=== PATIENT | male | born 1960 | race Caucasian/White ===

== ENCOUNTER 2020-08-18 16:02 | Emergency (ER) | payer OTHER, MEDICARE, SELFPAY ==
[2020-08-18] VITALS (19 sets, daily range): BP systolic 128–199; BP diastolic 78–125; PULSE 70–104; RESP 11–20; TEMP 36.7; O2SAT 95–99; BMI 39.5
--- NOTE | 2020-08-18 16:12 | XRR_ITS ---
PROCEDURE INFORMATION: Exam: XR Chest, 1 View Exam date and time: 08/18/2020 4:13 PM Age: 60 years old Clinical indication: Chest pain; Additional info: Cp TECHNIQUE: Imaging protocol: XR of the chest Views: 1 view. COMPARISON: No relevant prior studies available. FINDINGS: Lungs: Unremarkable. No consolidation. Pleural spaces: Unremarkable. No pleural effusion. No pneumothorax. Heart/Mediastinum: Unremarkable. No cardiomegaly. Bones/joints: Unremarkable. XR/XR chest 1V portable [id number] IMPRESSION: No acute findings.
--- NOTE | 2020-08-18 16:12 | ECG_ITS ---
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 Measurements Intervals [place] Rate: 93 P: 48 [place]: 178 QRS: 24 QRSD: 80 T: 33 QT: 337 QTc: 421 Interpretive Statements SINUS RHYTHM LOW QRS VOLTAGE IN PRECORDIAL LEADS [QRS DEFLECTION < 1.0 mV IN CHEST LEADS] SEPTAL MYOCARDIAL INFARCTION [40+ ms Q WAVE IN V1/V2], PROBABLY OLD No previous ECG available for comparison Electronically Signed On 08-18-2020 17:02:20 WOOL GROWER by Robert Osullivan M.D. [email or web address]/store/[id number]
[2020-08-18] MEDS: labetalol 5 mg/mL SDV 20mL 20 MG IVP ×2 (19:20→21:05)
[2020-08-18] MEDS: lidocaine 2% viscous 15 ML, aluminum-mag hydrox-simethicon 30 ML, sucralfate oral liq 1 GM PO (19:30)
[2020-08-18] MEDS: nitroglycerin 1 gm/inch oint Pkt 1 INCH TOPICAL (19:35)
[2020-08-18 20:00] LABS: Basophils % 0.3 %; Eosinophils % 0.1 %; Hematocrit 47.1 % (42.0-52.0); Lymphocytes # 2.8 10^3/uL (0.8-4.8); Lymphocytes % 23.3 %; Mean Corpuscular Hemoglobin 30.5 pg (28.0-34.0); Mean Corpuscular Volume 89.7 fL (80-94); Monocytes # 0.6 10^3/uL (0.2-0.9); Monocytes % 4.6 %; Neutrophils # 8.56 10^3/uL (1.8-7.7); Neutrophils % 71.3 %; Nucleated Red Blood Cells % 0 %; Platelet Count 210 10^3/cmm (130-400); Red Blood Count 5.25 10^6/uL (4.1-5.3); Red Cell Distribution Width 12.2 % (12.1-15.1)
--- NOTE | 2020-08-18 20:26 | PC.NURSE ---
pt reports no improvement or change in pain 5/10 in epigastric area. Describes feeling as a rolling, bubling pressure with no acid reflux. BP rising after meds adm. notified
[2020-08-18 20:29] LABS: Alanine Aminotransferase 14 U/L (0-41); Albumin Level 4.3 g/dL (3.5-5.2); Alkaline Phosphatase 105 IU/L (40-130); Anion Gap 18.2 (5-19); Aspartate Amino Transferase 17 U/L (0-40); Blood Urea Nitrogen 11 mg/dL (8-23); Calcium 9.5 mg/dL (8.5-10.5); Carbon Dioxide 22 mmol/L (22-29); Chloride 96 mmol/L (98-107); Globulin 2.8 g/dL (1.3-4.6); Glomerular Filtration Rate 98.6 mL/min (90-130); Glucose 259 mg/dL (65-115); Osmolality Calculated 282 mOsm/kg (285-295); Potassium 4.2 mmol/L (3.5-5.1); Sodium 132 mmol/L (136-145); Total Bilirubin 0.6 mg/dL (0.15-1.2); Total Protein 7.1 g/dL (6.6-8.7)
[2020-08-18 20:30] LABS: Troponin(5th) Baseline 11 ng/L (0-15)
[2020-08-18] MEDS: ondansetron 2 mg/ML SDV 2 mL 4 MG IVP (20:40)
[2020-08-18] MEDS: morphine 4 mg/mL SDV 1 mL IVP (20:48)
[2020-08-18] MEDS: amlodipine 10 mg Tablet PO (20:52)
--- NOTE | 2020-08-18 20:54 | W.ED.CHESTPA ---
HPI - Chest Pain General: Chief Complaint: Chest Pain Stated Complaint: cp/elevated BP Time Seen by Provider: 08/18/20 18:59 History of Present Illness: HPI narrative: 60-year-old gentleman with a history of diabetes and hypertension. No prior history of coronary disease. He notes that he has had a sick, indigestion type feeling with a rolling belly and chest most of the day today. He notes that kept getting worse. He checked his blood pressure and it was quite high at home up to 200 systolic. He decided he better come to the hospital. He notes that the nausea/discomfort in his chest and belly is improved since his arrival, but definitely still there. He also notes that he started chromium and saw palmetto this week, and was wondering if this may be the cause of his symptoms. MD complaint: chest pain and other Pertinent past history: other Onset (ago): hour(s) Timing of current episode: constant Prior episodes: No Onset: during rest Pain location: substernal and epigastric Pain radiation: none Severity: moderate Quality: aching, heaviness and burning Relieving factors: nothing Exacerbating factors: nothing Associated symptoms: Reports abdominal pain and nausea; Deny dyspnea, fever(s), palpitations or vomiting Treatment prior to arrival: none Review of Systems Const: Denies: fever(s) Eyes: Denies: change in vision ENMT: Denies: odynophagia, swelling of lips/tongue or sinus pain Card: Reports: chest pain; Denies: palpitations, irregular heart rhythm, edema or orthopnea Resp: Denies: dyspnea GI: Reports: abdominal pain and nausea; Denies: vomiting : Reports: difficulty urinating; Denies: hematuria Musc: Denies: neck pain or joint warmth Skin/Breast: Denies: rash, pruritus or erythema Neuro: Denies: headache(s), dizziness or vertigo Psych: Denies: anxiety PFSH ED PFSH: Social History (Updated 08/18/20 @ 16:11 by Itz Berrios RN) Smoking and tobacco status: never smoked Alcohol intake: never Substance/Drug Use: never Physical Exam Const: GENERAL APPEARANCE: well developed ORIENTATION/CONSCIOUSNESS: Yes oriented to person, Yes oriented to place and Yes oriented to time HENMT: COMMON NORMALS: normocephalic, external ears normal and Normal external nose present HEAD & SCALP: normocephalic FACE & SINUS: normal facial exam NOSE: Normal external nose present and No nasal discharge present EXTERNAL EAR: Yes external ears normal Eye: COMMON NORMALS: Equal, round and reactive pupils present, EOMs intact bilaterally and conjunctivae normal EYELID: eyelids normal CONJUNCTIVA: Yes conjunctivae normal PUPIL: Yes Equal, round and reactive pupils present Neck/C-Spine: COMMON NORMALS: full ROM GENERAL: No tracheal deviation Chest: COMMONS NORMALS: normal inspection of the chest CHEST: No tenderness Resp: COMMON NORMALS: clear to auscultation bilaterally EFFORT & INSPECTION: No tachypneic, No respiratory distress, No retractions, No uses accessory muscles and No tracheal deviation AUSCULTATION: clear to auscultation bilaterally, no rhonchi, no wheezes and lung sounds not diminished Cardio: COMMON NORMALS: regular rate and regular rhythm RATE: regular rate RHYTHM: regular rhythm HEART SOUNDS: no murmurs PERIPHERAL PULSES: radial pulses present GI: INSPECTION: No abdominal distension AUSCULTATION: No Hyperactive bowel sounds present and No Hypoactive bowel sounds present PALPATION: No Guarding due to palpation present (GI) and No Rigid due to palpation PERCUSSION: no dullness to percussion and no tympanic to percussion Neuro: SENSORIUM/ORIENTATION: Yes oriented to person, Yes oriented to place and Yes oriented to time Psych: COMMON NORMALS: mental status grossly normal Skin: COMMON NORMALS: no rashes or lesions noted GENERAL SKIN EXAM: no rashes or lesions noted Course Vital Signs: Vital signs: Vital Signs Temperature 98.1 F 08/18/20 16:06 Pulse Rate 71 08/18/20 22:10 Respiratory Rate 17 08/18/20 22:10 Blood Pressure 139/86 08/18/20 22:10 Pulse Oximetry 96 08/18/20 22:10 MDM - Chest Pain MDM Narrative: Medical decision making narrative: 60-year-old male with hypertension and epigastric/chest discomfort. He notes that it improves when he belches. His EKG x2 2 hours apart shows a normal sinus rhythm with a rate of 70 normal axis and no acute ST changes. His first troponin is negative, his second 1 did not rise. His white blood cell count is 12 without left shift. His belly is nontender. His other laboratory is benign, although his sugar is high. His chest x-ray is negative. GI cocktail did not seem to help his symptoms. His blood pressure is now much better controlled, 150/84. He will be given amlodipine for as needed control of his blood pressure should it remain high he will also be given Prevacid and Carafate for his epigastric discomfort. Close outpatient follow-up. He knows to return for worsening symptoms Lab Data: Labs: Lab Results 08/18/20 08/18/20 08/18/20 Range/Units 19:05 19:05 19:05 WBC Cancelled Corrected WBC Cancelled RBC Cancelled Hgb Cancelled Hct Cancelled MCV Cancelled MCH Cancelled MCHC Cancelled RDW Cancelled Plt Count Cancelled MPV Cancelled Gran % Cancelled Neut % (Auto) Cancelled Lymph % (Auto) Cancelled [place] % (Auto) Cancelled Eos % (Auto) Cancelled Baso % (Auto) Cancelled Neut # (Auto) Cancelled Lymph # (Auto) Cancelled [place] # (Auto) Cancelled Eos # (Auto) Cancelled Baso # (Auto) Cancelled Absolute Gran (aut o) Cancelled Nucleated RBC % (a uto) Cancelled Nucleated RBCs # Cancelled Sodium Cancelled Potassium Cancelled Chloride Cancelled Carbon Dioxide Cancelled Anion Gap Cancelled BUN Cancelled Creatinine Cancelled GFR Calculation Cancelled Glucose Cancelled Calculated Osmolal ity Cancelled Calcium Cancelled Total Bilirubin Cancelled AST Cancelled ALT Cancelled Alkaline Phosphata se Cancelled Troponin T Baselin e Cancelled Troponin T 120 Min [place] (0-15) ng/L Delta Troponin T (0-10) ABS# Total Protein Cancelled Albumin Cancelled Globulin Cancelled 08/18/20 08/18/20 08/18/20 Range/Units 19:45 19:45 19:45 WBC 12.0 H Corrected WBC RBC 5.25 Hgb 16.0 Hct 47.1 MCV 89.7 MCH 30.5 MCHC 34.0 RDW 12.2 Plt Count 210 MPV 10.0 Gran % Neut % (Auto) 71.3 Lymph % (Auto) 23.3 Karnes % (Auto) 4.6 Eos % (Auto) 0.1 Baso % (Auto) 0.3 Neut # (Auto) 8.56 H Lymph # (Auto) 2.8 [place] # (Auto) 0.6 Eos # (Auto) 0.0 Baso # (Auto) 0.0 Absolute Gran (aut o) Nucleated RBC % (a uto) 0 Nucleated RBCs # 0.0 Sodium 132 L Potassium 4.2 Chloride 96 L Carbon Dioxide 22 Anion Gap 18.2 BUN 11 Creatinine 0.8 GFR Calculation 98.6 Glucose 259 H Calculated Osmolal ity 282 L Calcium 9.5 Total Bilirubin 0.6 AST 17 ALT 14 Alkaline Phosphata se 105 Troponin T Baselin e 11 Troponin T 120 Min [place] (0-15) ng/L Delta Troponin T (0-10) ABS# Total Protein 7.1 Albumin 4.3 Globulin 2.8 08/18/20 Range/Units 21:52 WBC Corrected WBC RBC Hgb Hct MCV MCH MCHC RDW Plt Count MPV Gran % Neut % (Auto) Lymph % (Auto) [place] % (Auto) Eos % (Auto) Baso % (Auto) Neut # (Auto) Lymph # (Auto) [place] # (Auto) Eos # (Auto) Baso # (Auto) Absolute Gran (aut o) Nucleated RBC % (a uto) Nucleated RBCs # Sodium Potassium Chloride Carbon Dioxide Anion Gap BUN Creatinine GFR Calculation Glucose Calculated Osmolal ity Calcium Total Bilirubin AST ALT Alkaline Phosphata se Troponin T Baselin e Troponin T 120 Min [place] 8.83 (0-15) ng/L Delta Troponin T -2.17 L (0-10) ABS# Total Protein Albumin Globulin Discharge Plan Discharge Patient Disposition: Home Clinical Impression: Hypertensive urgency Chest pain Qualifiers: Chest pain type: unspecified Qualified Code(s): R07.9 - Chest pain, unspecified Condition: Stable Prescriptions: New amlodipine 10 mg tablet 10 mg PO DAILY Qty: 30 RF: 0 Prevacid 30 mg capsule,delayed release(DR/EC) 30 mg PO DAILY Qty: 30 RF: 0 Carafate 1 gram tablet 1 g PO Q6H 28 Days Qty: 112 RF: 0 Discharge Orders: Discharge ED (Routine); Ordered 08/18/20 Ordered By: Vincent Jain Discharge Diet: Diabetic Discharge Activity: Increase activity as tolerated Patient Instructions: Chest Pain (ED), Hypertension (ED) Activity Restrictions/Additional Instructions: Return for worsening chest pain, shortness of breath, fever, vomiting, other concerning symptoms. Check your blood pressure twice daily, and report numbers to your physician. If your blood pressure is staying greater than 150/90 you may take the medication prescribed to you tonight. Coding Level of Care Code ED Chemical Operations Specialist for Chg Fwd Exam Comprehensive
--- NOTE | 2020-08-18 22:12 | ECG_ITS ---
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 Measurements Intervals [place] Rate: 71 P: 51 [place]: 197 QRS: 35 QRSD: 84 T: 19 QT: 384 QTc: 419 Interpretive Statements SINUS RHYTHM LOW QRS VOLTAGE IN PRECORDIAL LEADS [QRS DEFLECTION < 1.0 mV IN CHEST LEADS] SEPTAL MYOCARDIAL INFARCTION , PROBABLY OLD [40+ ms Q WAVE IN V1/V2] Compared to ECG 08/18/2020 16:13:45 No significant changes Electronically Signed On 08-19-2020 17:16:08 MICROBIOLOGICAL ANALYST by Robert Osullivan M.D. [email or web address].[employer]/store/NU/[id number] f
[2020-08-18 22:15] LABS: Troponin 5 2HR 8.83 ng/L (0-15)
[2020-08-18 22:40] LABS: Troponin 5 2HR Delta -2.17 ABS# (0-10)
[2020-08-19 00:05] VITALS: BP 150/84; PULSE 70; RESP 12; O2SAT 97
== END 2020-08-18 23:45 | disposition home or self-care (01) ==
PROVIDERS: Emergency Medicine; Emergency Provider Emergency Medicine
DX: I16.0 Hypertensive urgency (principal); R07.9 Chest pain, unspecified
CPT/HCPCS: 12345; 71045; 80053; 84484; 85025; 93005; 99282; J2270; J2405; J3490

== ENCOUNTER 2020-12-04 21:17 | Emergency (ER) | payer OTHER, MEDICARE, SELFPAY ==
[2020-12-04 21:22] VITALS: BP 181/85; PULSE 117; RESP 16; TEMP 36.7; O2SAT 99; BMI 38.4
--- NOTE | 2020-12-04 22:29 | ECG_ITS ---
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 Measurements Intervals [place] Rate: 97 P: 43 NM: 192 QRS: 22 QRSD: 83 T: 29 QT: 334 QTc: 425 Interpretive Statements SINUS RHYTHM SEPTAL MYOCARDIAL INFARCTION , PROBABLY OLD [40+ ms Q WAVE IN V1/V2] Compared to ECG 08/18/2020 22:55:02 No significant changes Electronically Signed On 12-05-2020 10:16:27 CDT by Kaci West M.D. [email or web address].[employer]/store/NU/[id number]/[id number] f
--- NOTE | 2020-12-04 22:46 | ED_ITS ---
HPI - Back Pain/Injury General: Chief Complaint: Back Pain/Injury Stated Complaint: lower back pain, hip pain Time Seen by Provider: 12/04/20 22:21 Source: patient Mode of arrival: ambulatory Limitations: no limitations History of Present Illness: HPI Narrative: 60-year-old male with a history of chronic back pain. She has been having left lower back pain over the last week. [facility] but has not had any pain medicines. He states that the pain is worsened and is mainly in his left back and left hip. He states it radiates down to his buttocks. States has had sciatica in the past. He denies any difficulty walking. Denies any bowel or bladder incontinence. States the pain is improved with rest and worse with movement or bending. Denies any recent injuries. Associated symptoms: Deny abdominal pain, chills, dysuria, fever(s), nausea or vomiting Review of Systems Const: Denies: fever(s), chills, body aches or change in appetite Eyes: Denies: blurry vision or eye discomfort ENMT: Denies: throat pain or dental pain Card: Denies: chest pain Resp: Denies: dyspnea GI: Denies: abdominal pain, nausea, vomiting or diarrhea : Denies: dysuria Musc: Reports: back pain; Denies: neck pain Skin/Breast: Denies: rash Neuro: Denies: headache(s) Psych: Denies: depression Clint/Lymph: Denies: easy bruising All/Imm: Denies: urticaria PFSH ED PFSH: Family History Other CAD (coronary artery disease) Cancer Diabetes Hypertension Social History Smoking and tobacco status: never smoked Alcohol intake: never Physical Exam Const: COMMON NORMALS: no acute distress, patient oriented x3 and healthy appearing HENMT: COMMON NORMALS: normocephalic and atraumatic HEAD & SCALP: normocephalic and atraumatic Eye: COMMON NORMALS: Equal, round and reactive pupils present and EOMs intact bilaterally PUPIL: Yes Equal, round and reactive pupils present Neck/C-Spine: COMMON NORMALS: full ROM and supple Chest: COMMONS NORMALS: normal inspection of the chest and normal palpation of entire chest wall Resp: COMMON NORMALS: normal respiratory effort, No retractions, No use of accessory muscles and clear to auscultation bilaterally AUSCULTATION: clear to auscultation bilaterally Cardio: COMMON NORMALS: regular rate, regular rhythm and No murmurs present (Cardio) RATE: regular rate RHYTHM: regular rhythm GI: COMMON NORMALS: Normal to inspection, nondistended, normoactive bowel sounds present, Soft to palpation, non-tender and no masses PALPATION: Yes Soft to palpation Back/Pelvis: OTHER: No midline tenderness. Patient has tenderness over left lower back. No saddle anesthesia. Extremity: COMMON NORMALS: normal to inspection and full ROM Neuro: COMMON NORMALS: patient oriented x3, moves all extremities and no focal motor deficits Psych: COMMON NORMALS: mental status grossly normal, Normal thought process present and cooperative THOUGHT PROCESS: Normal thought process present Skin: COMMON NORMALS: no rashes or lesions noted and no wounds GENERAL SKIN EXAM: no rashes or lesions noted Course Vital Signs: Vital signs: Vital Signs Temperature 98.1 F 12/04/20 21:22 Pulse Rate 86 12/05/20 00:13 Respiratory Rate 20 H 12/05/20 00:13 Blood Pressure 176/88 12/05/20 00:13 Pulse Oximetry 97 12/05/20 00:13 MDM - Back Pain/Injury MDM Narrative: Medical decision making narrative: Patient presents here with back pain is chronic in nature. Likely has some sciatica as well and is continue steroids at home. He feels improved after the morphine. Has no signs of epidural abscess or cord compression. He is follow-up with a neurosurgeon at 17 December. He is return to ER if worsening. He understands agrees to plan. EKG Data^: EKG 1: Attestation: I personally reviewed and interpreted this EKG as follows: EKG interpretation date: 12/04/20 EKG interpretation time: 22:37 Interpretation: nsr hr [address] or t wave abnormalities qrs 83 qtc 389 Discharge Plan Discharge Patient Disposition: Home Clinical Impression: Low back pain Qualifiers: Chronicity: acute Back pain laterality: left Sciatica presence: with sciatica Sciatica laterality: sciatica of left side Qualified Code(s): M54.42 - Lumbago with sciatica, left side Condition: Stable Prescriptions: New hydrocodone-acetaminophen 5-325 mg tablet 1 tab PO Q6H PRN (Reason: pain) Qty: 14 RF: 0 No Action lisinopril 20 mg tablet 20 mg PO DAILY RF: 0 amlodipine 10 mg tablet 20 mg PO DAILY RF: 0 famotidine 10 mg tablet 10 mg PO DAILY RF: 0 tramadol 50 mg tablet 50 mg PO BID PRNRF: 0 Discharge Orders: Discharge ED (Routine); Ordered 12/04/20 Ordered By: Krysten Veras Discharge Diet: Advance as tolerated Discharge Activity: Resume usual activity Patient Instructions: Back Pain (ED), Opioid Safety Coding Level of Care Code ED Manager Mechanical Maintenance for Chg Fwd Exam Comprehensive
[2020-12-04 23:00] VITALS: BP 176/88; PULSE 119; RESP 22; O2SAT 97
[2020-12-04 23:06] VITALS: RESP 20; O2SAT 97
[2020-12-04] MEDS: morphine 4 mg/mL SDV 1 mL 8 MG IM (23:06)
[2020-12-04] MEDS: dexamethasone 10 mg/mL INJ IM (23:07)
[2020-12-05] MEDS: HYDROcodone-acetaminophen 7.5-325 mg Tablet 1 TAB PO (00:07)
[2020-12-05 00:13] VITALS: BP 176/88; PULSE 86; RESP 20; O2SAT 97
== END 2020-12-05 00:10 | disposition home or self-care (01) ==
PROVIDERS: Emergency Provider Emergency Medicine
DX: M54.42 Lumbago with sciatica, left side (principal)
CPT/HCPCS: 93005; 96372; 99283; J1100; J2270

== ENCOUNTER 2020-12-07 11:32 | Emergency (ER) | payer OTHER, MEDICARE, SELFPAY ==
[2020-12-07 11:34] VITALS: BP 159/52; PULSE 91; RESP 18; TEMP 36.7; O2SAT 92
--- NOTE | 2020-12-07 11:47 | ED_ITS ---
HPI - Back Pain/Injury General: Chief Complaint: Back Pain/Injury Stated Complaint: back pain Time Seen by Provider: 12/07/20 11:47 History of Present Illness: HPI Narrative: Patient comes in for aggravating back pain. Patient states pain is been going on for about 2 weeks. Patient has been seen in the ER about 3 days ago for similar discomfort and was treated with an injection. Patient reports that his pain was worse the next day and he tried the hydrocodone that was prescribed at the time with minimal to no relief. Patient followed up with his primary care provider at the [facility] and was prescribed some more hydrocodone. Patient reports that he gets no relief with the hydrocodone. Patient appears uncomfortable but moves all extremities well and does not appear ill or toxic. Patient does report that he has chronic back pain and is supposed to see a neurosurgeon/spinal specialist on December 17. Patient is just seeking relief until he can get into see his neurosurgeon. Patient denies any incontinence of urine or bladder MD elicited complaint: back pain Pertinent past history: prior back pain Timing: intermittent Severity: moderate Similar Symptoms Previously: Yes Quality: burning and spasming Location: lumbar spine Radiation: buttocks and left upper leg Exacerbating factors: none Relieving factors: none Associated symptoms: Reports no associated symptoms Review of Systems General: Reports: 10 or more systems reviewed and unremarkable except in HPI and below Musc: Reports: back pain PFS ED 2 PFSH: Family History Other CAD (coronary artery disease) Cancer Diabetes Hypertension Social History Smoking and tobacco status: never smoked Alcohol intake: never Physical Exam Const: COMMON NORMALS: no acute distress and patient oriented x3 GENERAL APPEARANCE: cooperative HENMT: COMMON NORMALS: normocephalic and Normal external nose present HEAD & SCALP: normal to inspection and normocephalic NOSE: Normal external nose present Eye: GENERAL EYE: appearance normal, both eyes and all related structures Neck/C-Spine: COMMON NORMALS: full ROM Chest: COMMONS NORMALS: normal inspection of the chest Resp: COMMON NORMALS: normal respiratory effort EFFORT & INSPECTION: Yes able to speak in complete sentences Cardio: COMMON NORMALS: regular rate and regular rhythm RATE: regular rate RHYTHM: regular rhythm GI: COMMON NORMALS: non-tender : COMMON NORMALS: Yes no CVA tenderness BLADDER/KIDNEY EXAM: Yes no CVA t enderness Back/Pelvis: COMMON NORMALS: no CVA tenderness, thoracic and lumbar spine normal to inspection and no thoracic nor lumbar tenderness PELVIS: Yes buttock abnormal (Tenderness to the left upper medial buttock) Buttock abnormal laterality: left SACROILIAC JOINTS: Yes SI joints normal Extremity: COMMON NORMALS: normal to inspection Neuro: COMMON NORMALS: patient oriented x3 and moves all extremities Psych: COMMON NORMALS: mental status grossly normal and cooperative Skin: COMMON NORMALS: no rashes or lesions noted GENERAL SKIN EXAM: no rashes or lesions noted Course Vital Signs: Vital signs: Vital Signs Temperature 98.0 F 12/07/20 11:34 Pulse Rate 91 12/07/20 11:34 Respiratory Rate 18 12/07/20 12:44 Blood Pressure 159/52 12/07/20 11:34 Pulse Oximetry 92 12/07/20 11:34 MDM - Back Pain/Injury MDM Narrative: Medical decision making narrative: Patient comes in for persistent low back pain. Patient denies any abnormalities with bowel or bladder. Abdomen soft nontender. No CVA tenderness. No midline cervical , thoracic, or lumbar tenderness. Deep palpation of the left upper medial buttock does elicit some increased pain and discomfort. Differential diagnosis includes intervertebral disc disease, sciatica, lumbar radiculopathy. Patient was medicated with fentanyl, Toradol, and orphenadrine with improvement of pain and discomfort. CT scan of the lumbar spine indicated some mild to moderate spinal stenosis at L4-L5, and a herniation of the disc at L5-S1. No significant central canal spinal stenosis is noted. We will continue patient on diclofenac for pain and inflammation, tizanidine for muscle relaxation, and tramadol for further pain relief. Patient was encouraged to drink plenty of water and follow-up with primary care for refills of medication. Patient reported understanding of care plan and need for follow-up or return to the ER. Discharge Plan Discharge Patient Disposition: Home Clinical Impression: Lumbar radiculopathy Condition: Stable Prescriptions: New diclofenac potassium 50 mg tablet 50 mg PO TID Qty: 15 RF: 0 tizanidine 4 mg tablet 4 mg PO Q8H PRN (Reason: muscle spasticity) Qty: 15 RF: 0 tramadol 50 mg tablet 50 mg PO Q8H PRN (Reason: pain) Qty: 15 RF: 0 No Action lisinopril 20 mg tablet 20 mg PO DAILY RF: 0 amlodipine 10 mg tablet 20 mg PO DAILY RF: 0 famotidine 10 mg tablet 10 mg PO DAILY RF: 0 tramadol 50 mg tablet 50 mg PO BID PRNRF: 0 hydrocodone-acetaminophen 5-325 mg tablet 1 tab PO Q6H PRN (Reason: pain) Qty: 14 RF: 0 Discharge Orders: Discharge ED (Routine); Ordered 12/07/20 Ordered By: Emmanuel Crisostomo Discharge Diet: Usual diet Discharge Activity: Increase activity as tolerated Patient Instructions: Back Pain (ED), Opioid Safety Activity Restrictions/Additional Instructions: Activity as tolerated. Gentle stretching and range of motion exercises. Use ice or heat to the area for further pain relief. Take medication as directed. Do not use ibuprofen with diclofenac. Follow-up with primary care for refills of medication as needed. Return to the emergency department as needed. Coding Level of Care Code ED Metal Rivet Machine Operator for Cali Church
--- NOTE | 2020-12-07 11:52 | CTR_ITS ---
PROCEDURE INFORMATION: Exam: CT Lumbar Spine Without Contrast Exam date and time: 12/07/2020 12:24 PM Age: 60 years old Clinical indication: Low back pain and lumbago with sciatica; Left; Additional info: Lumbar pain TECHNIQUE: Imaging protocol: Computed tomography images of the lumbar spine without contrast. Radiation optimization: All CT scans at this facility use at least one of these dose optimization techniques: automated exposure control; mA and/or kV adjustment per patient size (includes targeted exams where dose is matched to clinical indication); or iterative reconstruction. COMPARISON: No relevant prior studies available. RADIATION DOSE METRICS: Total DLP (mGy-cm): 2508.2 FINDINGS: Vertebrae: No acute fracture. Normal alignment. L1-L2: No significant disc protrusion. No severe spinal canal stenosis. No significant neural foraminal narrowing. L2-L3: There is mild diffuse disc bulging but no focal disc herniation. No severe spinal canal stenosis. No significant neural foraminal narrowing. L3-L4: There is mild diffuse disc bulging but no focal disc herniation. No severe spinal canal stenosis. No significant neural foraminal narrowing. L4-L5: There is diffuse bulging of the L4-L5 disc asymmetrically more prominently to the left side. There is facet joint hypertrophy. There is lwdy-ef-eqilelyc spinal stenosis related to the diffuse disc protrusion and bilateral facet hypertrophy. No severe spinal canal stenosis. No significant neural foraminal narrowing. L5-S1: There is chronic degenerative disc space narrowing and diffuse bulging. There is a focal herniation of the disc to the left side of the canal measuring about 6 mm in diameter. No severe spinal canal stenosis. No significant neural foraminal narrowing. Soft tissues: Unremarkable. CT/CT lumbar spine wo con* [id number] IMPRESSION: 1. Iatj-jm-jvzipcwj spinal stenosis at the L4-L5 level related to diffuse disc protrusion and bilateral facet hypertrophy. 2. Small herniation of the L5-S1 disc to the left lateral recess with mild left neural foraminal narrowing but no significant central canal stenosis. Radiation Dose CTDIVOL = (mGy): DLP = 2508.2 (mGy-cm)
[2020-12-07 12:44] VITALS: RESP 18
[2020-12-07] MEDS: fentaNYL 50 mcg/mL INJ 2mL IVP (12:44)
[2020-12-07] MEDS: orphenadrine 30 mg/mL Inj 2 mL 60 MG IVP (12:46)
[2020-12-07] MEDS: ketorolac 30 mg/mL INJ 15 MG IVP (12:46)
[2020-12-07 13:31] VITALS: BP 131/81; PULSE 88; RESP 18; O2SAT 96
== END 2020-12-07 13:33 | disposition home or self-care (01) ==
PROVIDERS: Emergency Provider Nurse Practitioner Family
DX: M54.16 Radiculopathy, lumbar region (principal)
CPT/HCPCS: 72131; 96374; 96375; 99283; J1885; J2360; J3010

== ENCOUNTER 2021-07-10 20:00 | Outpatient (CLI) | payer OTHER, SELFPAY | END 2021-07-10 20:01 | disposition home or self-care (01) | LOC: SLEEP 07-14 08:01 | PROVIDERS: Visit Provider Family Medicine | DX: G47.30 Sleep apnea, unspecified (principal) | CPT/HCPCS: 95811 ==

== ENCOUNTER 2022-10-28 06:52 | Outpatient (CLI) | payer OTHER, SELFPAY ==
--- NOTE | 2022-10-28 07:12 | US_ITS ---
WS: [id number] ABDOMINAL ULTRASOUND LIMITED REASON FOR EXAM: RUQ ABDOMINAL PAIN COMPARISON: None available. ORDER DATE: 10/28/2022 7:14 AM TECHNIQUE: Grayscale and Doppler ultrasound examination of the abdomen. FINDINGS: Pancreas: Unremarkable as visualized Abdominal aorta and IVC: Approximately both 20 mm in diameter, unremarkable Liver: Liver measures 18.6 cm in length. Decreased penetration with possible hepatomegaly Gallbladder: Gallbladder wall thickness measures 0.2 mm. No evidence of cholelithiasis common bile du ct 4 mm in diameter Right kidney: Right kidney measures 11.7 cm x 4.8 cm x 5.1 cm. Right kidney cortex measures 1.2 cm. S atisfactory duplex flow No evidence of ascites US/US abdomen limited [id number] IMPRESSION: Unremarkable right upper quadrant ultrasound except for hepatomegaly and somewh at coarse echotexture liver.
== END 2022-10-28 06:53 | disposition home or self-care (01) ==
LOC: RAD 06:54
PROVIDERS: PCP Family Medicine; Visit Provider Family Medicine
DX: R10.11 Right upper quadrant pain (principal); R16.0 Hepatomegaly, not elsewhere classified
CPT/HCPCS: 76705

== ENCOUNTER 2023-02-25 09:21 | Outpatient (RCR) | payer OTHER, SELFPAY | END 2023-03-18 23:59 | disposition home or self-care (01) | LOC: SPT 09:21 | PROVIDERS: PCP Family Medicine; Visit Provider Family Medicine | DX: M54.50 Low back pain, unspecified (principal) | CPT/HCPCS: 97110 ==

== ENCOUNTER 2023-03-19 06:00 | Outpatient (RCR) | payer OTHER, SELFPAY | END 2023-04-17 23:59 | disposition home or self-care (01) | LOC: SPT 06:00 | PROVIDERS: PCP Family Medicine; Visit Provider Family Medicine | DX: M54.50 Low back pain, unspecified (principal) | CPT/HCPCS: 97110 ==

== ENCOUNTER 2023-06-03 07:20 | Outpatient (CLI) | payer OTHER, SELFPAY ==
--- NOTE | 2023-06-03 07:30 | MR_ITS ---
WS: [id number] MRI LUMBAR SPINE NONCONTRAST HISTORY: BACK PAIN COMPARISON: CT 12/07/2020 TECHNIQUE: Sagittal and axial multisequence imaging is submitted. Normal posterior alignment. Reactive marrow edema in the adjacent L4 and L5 vertebral bodies. No acut e compression fractures. Disc spaces are all mildly desiccated. Conus terminates normally at L1-2 disc level. L1-L2: No stenosis. L2-L3: Ligamentum flavum and facet arthritis. Mild disc encroachment into the foramina. Mild foramina l narrowing. L3-L4: Diffuse annular disc bulging with moderate ligamentum flavum and facet arthritis. No focal dis c protrusions. Mild central, bilateral subarticular recess and RIGHT foraminal stenosis. Moderate LEF T foraminal stenosis. L4-L5: Marked annular disc bulging with a central disc protrusion extending into the subarticular rec esses. Marked ligamentum flavum and facet arthritis. Moderate central with more severe bilateral suba rticular recess and foraminal stenosis. Increasing fluid in the RIGHT facet joint. Posterior laminect kassy defect. L5-S1: Diffuse annular disc bulging. Shallow disc protrusion contacts but does not displace the LEFT S1 nerve root. Posterior laminectomy defect. No central stenosis. Moderate LEFT and mild RIGHT forami nal stenosis. Paravertebral soft tissues are negative. IMPRESSION: 1. L4-5: Diffuse disc bulge with a central disc protrusion. Moderate central with more severe bilater al subarticular recess stenosis and foraminal stenosis. Increasing fluid in the RIGHT facet joint. 2. L5-S1: Annular disc bulging with a shallow central disc protrusion contacting the LEFT S1 nerve ro ot. Moderate LEFT and mild RIGHT foraminal stenosis. 3. Prior posterior laminectomy defects at L4-5 and L5-S1. 4. L3-4: Mild central, bilateral subarticular recess and RIGHT foraminal stenosis. Moderate LEFT fora rommel stenosis.
== END 2023-06-03 07:21 | disposition home or self-care (01) ==
LOC: RAD 07:21
PROVIDERS: PCP Family Medicine; Visit Provider Family Medicine
DX: M51.36 Other intervertebral disc degeneration, lumbar region (principal); M48.061 Spinal stenosis, lumbar region without neurogenic claudication
CPT/HCPCS: 72148

== ENCOUNTER → 2023-07-01 08:31 | Outpatient (BNVA) | payer OTHER, SELFPAY | PROVIDERS: PCP Family Medicine; Visit Provider Anesthesiology Pain Medicine | DX: M51.16 Intervertebral disc disorders with radiculopathy, lumbar region; M47.816 Spondylosis without myelopathy or radiculopathy, lumbar region; M48.061 Spinal stenosis, lumbar region without neurogenic claudication | CPT/HCPCS: 99204 ==

== ENCOUNTER 2023-08-17 09:59 | Outpatient (RCR) | payer OTHER, SELFPAY | END 2023-08-18 23:59 | disposition home or self-care (01) | LOC: SPT 09:59 | PROVIDERS: PCP Family Medicine; Visit Provider Family Medicine | DX: R42 Dizziness and giddiness (principal) | CPT/HCPCS: 95992; 97161 ==

== ENCOUNTER 2023-08-19 06:00 | Outpatient (RCR) | payer OTHER, SELFPAY | END 2023-09-16 23:59 | disposition home or self-care (01) | LOC: SPT 06:00 | PROVIDERS: PCP Family Medicine; Visit Provider Family Medicine | DX: R42 Dizziness and giddiness (principal) | CPT/HCPCS: 95992 ==

== ENCOUNTER → 2024-03-02 09:19 | Outpatient (BNVA) | payer OTHER, SELFPAY | PROVIDERS: PCP Family Medicine; Referring Provider Family Medicine; Visit Provider Internal Medicine | DX: R55 Syncope and collapse (principal); I49.1 Atrial premature depolarization; I49.3 Ventricular premature depolarization | CPT/HCPCS: 93246 ==

== ENCOUNTER 2024-03-21 06:22 | Outpatient (CLI) | payer OTHER, SELFPAY ==
--- NOTE | 2024-03-21 06:40 | USCV_ITS ---
Skip Villanueva Age: 64 Gender: M : 1960 Exam Date: 03/21/2024 06:50 Ordering Phys: Becky Quevedo MD Technologist: Sagrario Sosa Exam Location: [facility] [place] Indication: FATIGUE AND MURMUR BP: / HR: 70 Rhythm: Sinus Technical Quality: Adequate MEASUREMENTS (Male / Female) Normal Values 2D ECHO LV Diastolic Diameter PLAX 4.6 cm 4.2 - 5.9 / 3.9 - 5.3 cm LV Systolic Diameter PLAX 2.5 cm IVS Diastolic Thickness 1.0 cm 0.6 - 1.0 / 0.6 - 0.9 cm IVS Systolic Thickness 1.8 cm LVPW Diastolic Thickness 1.1 cm 0.6 - 1.0 / 0.6 - 0.9 cm LVPW Systolic Thickness 1.4 cm LVOT Diameter 2.0 cm LV Ejection Fraction 2D Teich 77.6 % LV Ejection Fraction MOD 4C 57.5 % LV Ejection Fraction MOD 2C 61.8 % LV Ejection Fraction 2C AL 61.0 % LA Diameter 2.4 cm RA Systolic Volume 4C AL 20.8 ml RA Systolic Volume 4C MOD 20.4 ml LA Sys Volume AL 32.4 cm cubed LA Sys Volume Index AL 12.5 cm cubed/m squared Aorta at Sinotubular Diameter 2.3 cm IVC Diameter 1.3 cm M-MODE LA Ao Ratio MM 1.7 AV Cusp Separation MM 1.4 cm DOPPLER AV Peak Velocity 164.0 cm/s LVOT Peak Velocity 133.0 cm/s AV Area Cont Eq vti 2.8 cm squared AV Area Cont Eq pk 2.6 cm squared MV Area PHT 2.9 cm squared Mitral E to A Ratio 1.0 TV Peak Velocity 123.7 cm/s TR Peak Velocity 140.0 cm/s TR Peak Gradient 7.8 mmHg TR Mean Velocity 94.0 cm/s TR Mean Gradient 4.2 mmHg TR Velocity Time Integral 35.4 cm TV Peak E Velocity 67.0 cm/s Right Atrial Pressure 3.0 mmHg Pulmonary Artery Systolic Pressu 10.8 mmHg PV Peak Velocity 108.0 cm/s FINDINGS Left Ventricle Normal left ventricular size and systolic function, EF 62%.no regional wall motion abnormalities. Right Ventricle The right ventricle is normal in size and function. Right Atrium The right atrium is normal in size. Left Atrium Mildly increased left atrial size. Mitral Valve No gross abnormalities noted Aortic Valve Thickened aortic valve. Mild aortic valve regurgitation. Tricuspid Valve Trace tricuspid valve regurgitation. Pulmonic Valve No gross abnormalities noted Pericardium Normal pericardium without effusion. Aorta Normal ascending aorta dimension. IVC The inferior vena cava appears normal. CONCLUSIONS Normal left ventricular size and systolic function, EF 62%.no regional wall motion abnormalities. Mildly increased left atrial size. Thickened aortic valve. Mild aortic valve regurgitation. Trace tricuspid valve regurgitation. Estimated pulmonary artery peak systolic pressure within normal limits There is no pericardial effusion. There are no intracardiac masses. No similar previous studies are available for comparison Dr Kaci West MD [facility] (Electronically Signed) Final Date: 21 March 2024 23:30 S
--- NOTE | 2024-03-21 07:30 | USCV_ITS ---
Skip Villanueva Age: 64 Gender: M : 1960 Exam Date: 03/21/2024 07:35 Ordering Phys: Becky Quevedo MD Technologist: WILLEM [place] [facility] [place]: Dizziness and near syncope Risk Factors: Unknown Previous Vascular Surgery: None Right Brachial BP: / Left Brachial BP: / Right Left Velocity (cm/s) Spectral Plaque Velocity (cm/s) Spectral Plaque Syst/Diast Broadening Syst/Diast Broadening 127.00/22.40 Prox CCA 116.20/ 21.50 74.70/ 13.70 Mid CCA 144.60/ 45.20 79.10/ 13.70 Distal CCA 56.60 / 11.00 124.80/31.10 Prox ICA 68.90 / 16.30 100.20/25.80 Mid ICA 144.60/ 45.20 73.40/ 21.30 Distal ICA 113.40/ 31.50 92.10 ECA 84.60 1.00 ICA/CCA 1.00 Antegrade Vertebral Antegrade 36.20/ 10.90 cm/s 40.20/ 10.80 cm/s Tri Subclavian Tri 77.30 148.7 0 FINDINGS Moderate dense plaques of the right bifurcation and proximal ICA Minimal plaque to the left bifurcation and proximal ICA Moderate diffuse plaque in the mid and distal ICA on the left side Antegrade flow in the vertebral arteries bilaterally. Normal Doppler flow velocities in the external carotid and subclavian arteries bilaterally CONCLUSIONS Moderate dense plaques of the right bifurcation and proximal internal carotid artery with Doppler features suggesting less than 50% stenosis. Moderate diffuse plaque in the left mid and distal internal carotid artery with velocity elevation, may suggest greater than 50% stenosis . Consider CTA to better evaluate the distal internal carotid artery on the left side, if clinically indicated. No similar previous studies are available for comparison Dr Kaci West MD [facility] (Electronically Signed) Final Date: 23 March 2024 08:22 S
== END 2024-03-21 06:23 | disposition home or self-care (01) ==
PROVIDERS: PCP Family Medicine; Visit Provider Family Medicine
DX: I65.23 Occlusion and stenosis of bilateral carotid arteries (principal); I35.0 Nonrheumatic aortic (valve) stenosis
CPT/HCPCS: 93306; 93880

== ENCOUNTER 2024-03-24 11:58 | Emergency (ER) | payer OTHER, SELFPAY ==
[2024-03-24] VITALS (7 sets, daily range): BP systolic 118–166; BP diastolic 54–91; PULSE 71–83; RESP 12–20; TEMP 36.9; O2SAT 97–100; BMI 41.6
--- NOTE | 2024-03-24 12:00 | ECG_ITS ---
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 Measurements Intervals [place] Rate: 80 P: 57 MN: 184 QRS: 35 QRSD: 89 T: 20 QT: 359 QTc: 415 Interpretive Statements SINUS RHYTHM WITH SINUS ARRHYTHMIA LOW QRS VOLTAGE [QRS DEFLECTION < 0.5/1.0 mV IN LIMB/CHEST LEADS] Compared to ECG 12/04/2020 22:37:52 Low QRS voltage now present Myocardial infarct finding no longer present Electronically Signed On 03-24-2024 17:03:50 CDT by Kaci West M.D. [id number] f
--- NOTE | 2024-03-24 12:16 | XR_ITS ---
WS: [id number] Examination: XR chest 1V portable [id number] Reason for Exam: Chest pain Date: 03/24/2024 Comparison: 08/18/2020 Findings: The heart is not grossly enlarged on this AP portable film. The mediastinum not widened. There is no pulmonary edema. There is no pleural effusion. No dense consolidation is identified. XR/XR chest 1V portable [id number] Impression: No acute lung process is seen.
[2024-03-24 13:50] LABS: Basophils % 0.3 %; Eosinophils % 0.1 %; Lymphocytes # 4.6 10^3/uL (0.8-4.8); Lymphocytes % 32.9 %; Mean Corpuscular HGB Conc 32.2 g/dL (30-55); Mean Corpuscular Hemoglobin 30.7 pg (27-33); Mean Corpuscular Volume 95.3 fl (82-101); Monocytes # 0.7 10^3/uL (0.2-0.9); Monocytes % 5.1 %; Neutrophils # 8.61 10^3/uL (1.8-7.7); Neutrophils % 61.3 %; Nucleated Red Blood Cells % 0 %; Platelet Count 224 10^3/cmm (157-399); Red Cell Distribution Width 13.3 % (12.1-15.1); White Blood Count 14.02 10^3/uL (3.29-11.43)
[2024-03-24 14:11] LABS: Troponin(5th) Baseline 29 ng/L (0-15)
--- NOTE | 2024-03-24 14:17 | ECG_ITS ---
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 Measurements Intervals [place] Rate: 71 P: 56 VA: 203 QRS: 37 QRSD: 83 T: 7 QT: 373 QTc: 407 Interpretive Statements SINUS RHYTHM LOW QRS VOLTAGE [QRS DEFLECTION < 0.5/1.0 mV IN LIMB/CHEST LEADS] SEPTAL MYOCARDIAL INFARCTION , PROBABLY OLD [40+ ms Q WAVE IN V1/V2] Compared to ECG 03/24/2024 12:00:49 Myocardial infarct finding now present Sinus arrhythmia no longer present Electronically Signed On 03-24-2024 17:12:52 CDT by Kaci West M.D. [id number]
[2024-03-24 14:18] LABS: Alanine Aminotransferase 16 U/L (0-41); Albumin Level 4.3 g/dL (3.5-5.2); Alkaline Phosphatase 100 U/L (40-130); Anion Gap 18.3 (5-19); Aspartate Amino Transferase 17 U/L (0-40); Blood Urea Nitrogen 27 mg/dL (8-23); Calcium 8.9 mg/dL (8.5-10.5); Carbon Dioxide 20 mmol/L (22-29); Chloride 102 mmol/L (98-107); Creatinine Clr Calc Pharmacy 65.8563; Globulin 2.5 g/dL (1.3-4.6); Glomerular Filtration Rate 47.1 mL/min (90-130); Glucose 134 mg/dL (65-115); NT Pro B Type Natriuretic Pept 72 pg/mL (0-125); Osmolality Calculated 289 mOsm/kg (285-295); Potassium 4.3 mmol/L (3.5-5.1); Sodium 136 mmol/L (136-145); Total Bilirubin 0.4 mg/dL (0.15-1.2); Total Protein 6.8 g/dL (6.6-8.7)
--- NOTE | 2024-03-24 15:12 | ED_ITS ---
HPI - Chest Pain 2 General: Chief Complaint: Chest Pain Stated Complaint: cp Time Seen by Provider: 03/24/24 15:12 History of Present Illness: 64-year-old male presents emergency room complaining of chest pain. He has had chest pain for the last 2 days increases with inspiration. He is diabetic he has no known history of coronary artery disease. Most of his pain is gone by the time he arrived. He was brought in by EMS from the [place] [facility]. He had a stress test done in [place] about 1 to 2 weeks ago and was told that it was normal. Associated symptoms: Deny abdominal pain, dyspnea or fever(s) Related Data Home Medications Medication Instructions Recorded Confirmed amlodipine 10 mg tablet 20 mg PO DAILY 11/13/20 07/24/21 lisinopril 20 mg tablet 20 mg PO DAILY 11/13/20 07/24/21 gabapentin 300 mg capsule 300 mg PO DAILY 07/23/21 07/24/21 hydrochlorothiazide 25 mg tablet 25 mg PO DAILY 07/23/21 07/24/21 Previous Rx's Medication Instructions Recorded aspirin 81 mg tablet,delayed 81 mg PO DAILY #30 tabs 03/24/24 release isosorbide mononitrate 30 mg 30 mg PO DAILY #30 tabs 03/24/24 tablet,extended release 24 hr pantoprazole 40 mg tablet,delayed 40 mg PO BID 30 days #60 tabs 03/24/24 release Allergies Allergy/AdvReac Type Severity Reaction Status Date / Time ampicillin Allergy ALGY-Difficulty Verified 07/01/23 08:56 Breathing glipizide Allergy Unknown Verified 03/24/24 12:11 metformin Allergy ADR-Nausea Verified 03/24/24 12:11 Review of Systems 2 Const: Denies: fever(s) or chills Card: Denies: chest pain Resp: Denies: dyspnea GI: Denies: abdominal pain : Denies: dysuria, urinary frequency or urinary urgency Musc: Denies: neck pain or back pain Skin/Breast: Denies: rash PFSH ED 2 PFSH: Medical History (Updated 03/27/24 @ 17:41 by Pete Rajan DO) Hypertension Surgical History (Updated 03/27/24 @ 17:41 by Pete Rajna DO) History of back surgery 02/2021 History of colonoscopy Family History Other CAD (coronary artery disease) Cancer Diabetes Hypertension Social History Smoking and tobacco/nicotine status: never used tobacco/nicotine Alcohol intake: never Substance/Drug Use: never Physical Exam 2 Const: COMMON NORMALS: no acute distress GENERAL APPEARANCE: cooperative and comfortable ORIENTATION/CONSCIOUSNESS: Yes awake, Yes oriented to person, Yes oriented to place and Yes oriented to time HENMT: COMMON NORMALS: normocephalic, atraumatic and hearing grossly normal bilaterally HEAD & SCALP: normocephalic and atraumatic Resp: COMMON NORMALS: normal respiratory effort, No retractions, No use of accessory muscles and clear to auscultation bilaterally AUSCULTATION: clear to auscultation bilaterally Cardio: COMMON NORMALS: regular rate, regular rhythm and No murmurs present (Cardio) RATE: regular rate RHYTHM: regular rhythm GI: COMMON NORMALS: Soft to palpation and No hepatosplenomegaly present A USCULTATION: Yes normoactive bowel sounds PALPATION: Yes Soft to palpation, No Tenderness to palpation present (GI), No Guarding due to palpation present (GI) and Yes No hepatosplenomegaly present Extremity: COMMON NORMALS: normal to inspection, capillary refill normal, no clubbing, cyanosis or edema, no calf tenderness and no pedal edema Neuro: SENSORIUM/ORIENTATION: Yes oriented to person, Yes oriented to place and Yes oriented to time Skin: COMMON NORMALS: no rashes or lesions noted GENERAL SKIN EXAM: no rashes or lesions noted Course 2 Vital Signs: Vital signs: Vital Signs Temperature 98.5 F 03/24/24 12:02 Pulse Rate 82 03/24/24 18:17 Respiratory Rate 17 03/24/24 18:00 Blood Pressure 158/88 03/24/24 18:17 Pulse Oximetry 98 03/24/24 18:17 Oxygen Delivery Me thod Room Air 03/24/24 12:02 MDM - Chest Pain Medical Decision Making EKGs reviewed on the chart. Troponins trending negative. He is not currently having any chest pain. CTA chest negative. His blood pressure was elevated. Will discharge patient home set up for an outpatient stress test started on isosorbide and baby aspirin. Return if there is further problems Medical Records I reviewed the patient's medical records. Lab Data I reviewed the patient's lab results. 03/24/24 13:34 03/24/24 13:34 Radiology Impressions Chest X-Ray 03/24/24 12:16 Impression: No acute lung process is seen. Chest CTA 03/24/24 16:39 IMPRESSION: 1. No evidence of pulmonary embolism or other acute abnormality in the chest. 2. Findings suggestive of early hepatic cirrhosis. Laboratory Results WBC 14.02 10^3/uL (3.29-11.43) H 03/24/24 13:34 RBC 4.30 10^6/uL (3.85-5.65) 03/24/24 13:34 Hgb 13.20 g/dL (11.27-16.99) 03/24/24 13:34 Hct 41.0 % (37-53) 03/24/24 13:34 MCV 95.3 fl (82-101) 03/24/24 13:34 MCH 30.7 pg (27-33) 03/24/24 13:34 MCHC 32.2 g/dL (30-55) 03/24/24 13:34 RDW 13.3 % (12.1-15.1) 03/24/24 13:34 Plt Count 224 10^3/cmm (157-399) 03/24/24 13:34 MPV 10.0 fL (7.4-10.4) 03/24/24 13:34 Neut % (Auto) 61.3 % 03/24/24 13:34 Lymph % (Auto) 32.9 % 03/24/24 13:34 Winkler % (Auto) 5.1 % 03/24/24 13:34 Eos % (Auto) 0.1 % 03/24/24 13:34 Baso % (Auto) 0.3 % 03/24/24 13:34 Neut # (Auto) 8.61 10^3/uL (1.8-7.7) H 03/24/24 13:34 Lymph # (Auto) 4.6 10^3/uL (0.8-4.8) 03/24/24 13:34 Winkler # (Auto) 0.7 10^3/uL (0.2-0.9) 03/24/24 13:34 Eos # (Auto) 0.0 10^3/uL (0.0-0.8) 03/24/24 13:34 Baso # (Auto) 0.0 10^3/uL (0.0-0.1) 03/24/24 13:34 Nucleated RBC % (auto) 0 % 03/24/24 13:34 Nucleated RBCs # 0.0 /100WBC 03/24/24 13:34 Sodium 136 mmol/L (136-145) 03/24/24 13:34 Potassium 4.3 mmol/L (3.5-5.1) 03/24/24 13:34 Chloride 102 mmol/L (98-107) 03/24/24 13:34 Carbon Dioxide 20 mmol/L (22-29) L 03/24/24 13:34 Anion Gap 18.3 (5-19) 03/24/24 13:34 BUN 27 mg/dL (8-23) H 03/24/24 13:34 Creatinine 1.5 mg/dL (0.7-1.2) H 03/24/24 13:34 GFR Calculation 47.1 mL/min (90-130) L 03/24/24 13:34 Glucose 134 mg/dL (65-115) H 03/24/24 13:34 POC Glucose 96 mg/dL (70-110) 03/24/24 17:51 Calculated Osmolality 289 mOsm/kg (285-295) 03/24/24 13:34 Lactic Acid 1.0 mmol/L (0.5-2.2) 03/24/24 13:34 Calcium 8.9 mg/dL (8.5-10.5) 03/24/24 13:34 Total Bilirubin 0.4 mg/dL (0.15-1.2) 03/24/24 13:34 AST 17 U/L (0-40) 03/24/24 13:34 ALT 16 U/L (0-41) 03/24/24 13:34 Alkaline Phosphatase 100 U/L (40-130) 03/24/24 13:34 Troponin T Baseline 29 ng/L (0-15) H 03/24/24 13:34 Troponin T 120 Minute 27.53 ng/L (0-15) H 03/24/24 15:33 Delta Troponin T -1.47 ABS# (0-10) L 03/24/24 15:33 C-Reactive Protein 3.0 mg/L (0.0-4.9) 03/24/24 13:34 NT-Pro-B Natriuret Pep 72 pg/mL (0-125) 03/24/24 13:34 Total Protein 6.8 g/dL (6.6-8.7) 03/24/24 13:34 Albumin 4.3 g/dL (3.5-5.2) 03/24/24 13:34 Globulin 2.5 g/dL (1.3-4.6) 03/24/24 13:34 SARS-CoV-2 Ag (Rapid) Negative (Negative) 03/24/24 16:32 All radiology interpretation(s) finalized by discharge Clincial Decision Support The following clinical decision support tools were used to aid in care of the patient HEART Score -> History: Slightly Suspicous, EKG: Normal, Age: 45-64 yrs, Risk Factors: 1 or 2 Risk Factors, Troponin: Baseline Trop 16-45 ng/L. Resulting HEART Score: 3. Discharge Plan Discharge Patient Disposition: Home Clinical Impression: Atypical chest pain, Chest pain due to GERD Condition: Stable Prescriptions: New pantoprazole 40 mg tablet,delayed release (DR/EC) 40 mg PO BID 30 Days Qty: 60 0RF Rx Instructions: 1 p.o. twice daily x 10 days then 1 p.o. daily aspirin 81 mg tablet,delayed release (DR/EC) 81 mg PO DAILY Qty: 30 0RF isosorbide mononitrate 30 mg tablet extended release 24 hr 30 mg PO DAILY Qty: 30 0RF Discontinued omperazole 40 mg PO DAILY famotidine 20 mg PO 2XD No Action lisinopril 20 mg tablet 20 mg PO DAILY amlodipine 10 mg tablet 20 mg PO DAILY hydrochlorothiazide 25 mg tablet 25 mg PO DAILY gabapentin 300 mg capsule 300 mg PO DAILY Discharge Orders: Discharge ED (Routine); Ordered 03/24/24 Ordered By: Pete Rajan Referrals: Becky Quevedo MD [Primary Care Provider] - Discharge Diet: Usual diet Discharge Activity: Increase activity as tolerated Patient Instructions: Opioid Safety, Pain Management Activity Restrictions/Additional Instructions: Thank you for choosing [facility] for your healthcare needs today. It is very important that you follow up as instructed or that you return to the Emergency Department should you have concerns or if your condition changes or worsens in any way. You are seen today for complaints of continued chest pain that has been going on for some time. There is no evidence of pneumonia. No evidence of blood clot in the lung aneurysm or pneumothorax. You reported you recently had a stress test done that was normal. Your EKGs did not show any acute changes from previous EKGs and troponins did not show a significant change. Will increase your stomach medications stop the omeprazole and famotidine, start on pantoprazole 1 pill twice a day for 10 days then daily after. Was noted to blood pressure was elevated when you were here today as well. Recommend take a baby aspirin daily additionally recommend that you start isosorbide mononitrate 30 mg once daily. This will lower your blood pressure and is also protective of your heart follow-up with your primary care doctor within the next week. Coding Level of Care Code ED [employer] for [employer]
[2024-03-24 16:01] LABS: Troponin 5 2HR 27.53 ng/L (0-15)
[2024-03-24 16:02] LABS: Troponin 5 2HR Delta -1.47 ABS# (0-10)
--- NOTE | 2024-03-24 16:39 | CTR_ITS ---
PROCEDURE INFORMATION: Exam: CTA Chest With Contrast Exam date and time: 03/24/2024 4:48 PM Age: 64 years old Clinical indication: Dyspnea; Additional info: Dyspnea/tachycardia TECHNIQUE: Imaging protocol: Computed tomographic angiography of the chest with contrast. Exam focused on the arteries. 3D rendering (Not supervised by radiologist): MIP and/or 3D reconstructed images were created by the technologist. Radiation optimization: All CT scans at this facility use at least one of these dose optimization techniques: automated exposure control; mA and/or kV adjustment per patient size (includes targeted exams where dose is matched to clinical indication); or iterative reconstruction. Contrast material: OMNIPAQUE 350; Contrast volume: 95 ml; Contrast route: INTRAVENOUS (IV); COMPARISON: CR XR chest 1V portable [id number] 03/24/2024 1:15 PM RADIATION DOSE METRICS: Total DLP (mGy-cm): 563.41 FINDINGS: Pulmonary arteries: Normal. No pulmonary emboli. Aorta: No aortic aneurysm. No aortic dissection. Lungs: Scattered subcentimeter calcified lung granulomas. Pleural spaces: Unremarkable. No pneumothorax. No pleural effusion. Heart: Unremarkable. No cardiomegaly. No pericardial effusion. Coronary arteries: Mild coronary calcification. Lymph nodes: Mild bilateral hilar adenopathy. Liver: Mild hepatic contour lobulation suggestive of early cirrhosis. Spleen: Mild splenomegaly up to 14 cm. Bones/joints: Moderate degenerative endplate osteophytosis in the mid to lower thoracic spine. Calcific right rotator cuff tendinopathy. Soft tissues: Unremarkable. CT/CT angio chest PE protcl [id number] IMPRESSION: 1. No evidence of pulmonary embolism or other acute abnormality in the chest. 2. Findings suggestive of early hepatic cirrhosis.
[2024-03-24] MEDS: iohexol 350 mg/mL 500 mL Btl (per mL) IV (17:00)
[2024-03-24 17:12] LABS: SARS Covid-2 Antigen Negative (Negative)
[2024-03-24 17:56] LABS: Glucose Point of Care 96 mg/dL (70-110)
--- NOTE | 2024-03-27 17:55 | DCPLANNER ---
faxed outpatient order to scheduling for er f/u lexiscan
== END 2024-03-24 18:19 | disposition home or self-care (01) ==
PROVIDERS: Emergency Medicine; Emergency Provider Family Medicine; PCP Family Medicine
DX: R07.89 Other chest pain (principal); K21.9 Gastro-esophageal reflux disease without esophagitis; Z11.52 Encounter for screening for COVID-19; I10 Essential (primary) hypertension
CPT/HCPCS: 36416; 71045; 71275; 80053; 82962; 83605; 83880; 84484; 85025; 86140; 87426; 93005; 99285

== ENCOUNTER 2024-04-18 12:39 | Outpatient (CLI) | payer OTHER, SELFPAY ==
--- NOTE | 2024-04-18 12:46 | CTR_ITS ---
PROCEDURE INFORMATION: Exam: CTA Head Without And With Contrast, Arteriography Exam date and time: 04/18/2024 1:06 PM Age: 64 years old Clinical indication: Dizziness and giddiness; Additional info: Dizziness fatigue TECHNIQUE: Imaging protocol: Computed tomographic angiography of the head without and with contrast. Exam focused on the arteries. 3D rendering (Not supervised by radiologist): MIP and/or 3D reconstructed images were created by the technologist. Radiation optimization: All CT scans at this facility use at least one of these dose optimization techniques: automated exposure control; mA and/or kV adjustment per patient size (includes targeted exams where dose is matched to clinical indication); or iterative reconstruction. Contrast material: OMNI 350; Contrast volume: 100 ml; Contrast route: INTRAVENOUS (IV); COMPARISON: No relevant prior studies available. RADIATION DOSE METRICS: Total DLP (mGy-cm): 1308.71 FINDINGS: ANTERIOR CIRCULATION: Right internal carotid artery: Intracranial segment is patent with no significant stenosis or occlusion. No aneurysm. Right middle cerebral artery: No occlusion or significant stenosis. No aneurysm. Right anterior cerebral artery: No occlusion or significant stenosis. No aneurysm. Left internal carotid artery: Intracranial segment is patent with no significant stenosis. No aneurysm. Left middle cerebral artery: No occlusion or significant stenosis. No aneurysm. Left anterior cerebral artery: No occlusion or significant stenosis. No aneurysm. POSTERIOR CIRCULATION: Right vertebral artery: No occlusion or significant stenosis. No aneurysm. Left vertebral artery: No occlusion or significant stenosis. No aneurysm. Basilar artery: No occlusion or significant stenosis. No aneurysm. Right posterior cerebral artery: No occlusion or significant stenosis. No aneurysm. Left posterior cerebral artery: No occlusion or significant stenosis. No aneurysm. HEAD: Brain: No hemorrhage. Unremarkable white matter. No mass effect. Cerebral ventricles: Normal. No ventriculomegaly. Bones: Unremarkable. No acute fracture. Paranasal sinuses: Visuali mucosal thickening in bilateral paranasal sinuses with nearly complete opacification of the left sphenoid sinus with no air-fluid levels suggestive of chronic sinusitis. Mastoid air cells: Visualized mastoids are normal. No mastoid effusion. Soft tissues: Unremarkable. PROCEDURE INFORMATION: Exam: CTA Neck With Contrast Exam date and time: 04/18/2024 1:06 PM Age: 64 years old Clinical indication: Dizziness and giddiness; Additional info: Dizziness fatigue TECHNIQUE: Imaging protocol: Computed tomographic angiography of the neck with contrast. Exam focused on the cervical segments of the vasculature. 3D rendering (Not supervised by radiologist): MIP and/or 3D reconstructed images were created by the technologist. Radiation optimization: All CT scans at this facility use at least one of these dose optimization techniques: automated exposure control; mA and/or kV adjustment per patient size (includes targeted exams where dose is matched to clinical indication); or iterative reconstruction. Contrast material: OMNI 350; Contrast volume: 100 ml; Contrast route: INTRAVENOUS (IV); COMPARISON: CT angio chest PE protcl [id number] 03/24/2024 4:48 PM RADIATION DOSE METRICS: Total DLP (mGy-cm): 1308.71 FINDINGS: Right common carotid artery: No significant stenosis. No dissection or occlusion. Right internal carotid artery: Extracranial segment is patent with no significant stenosis. No dissection or occlusion. Right external carotid artery: No occlusion or significant stenosis. Left common carotid artery: No significant stenosis. No dissection or occlusion. Left internal carotid artery: Extracranial segment is patent with calcified atherosclerotic plaque at the origin causing about 65% stenosis. No dissection or occlusion. Left external carotid artery: No occlusion or significant stenosis. Right vertebral artery: Moderate to severe stenosis at the origin. No dissection or occlusion. Left vertebral artery: No significant stenosis. No dissection or occlusion. Soft tissues: No significant soft tissue swelling. Bones/joints: No acute fracture. CT/CT angio headneck* [id number] IMPRESSION: No large vessel stenosis or occlusion. No CT evidence of acute intracranial hemorrhage, mass or acute infarction. Chronic sinusitis. IMPRESSION: No right carotid stenosis. Moderate left carotid stenosis (about 65%). Moderate to severe stenosis at the origin of the right vertebral artery. REFERENCES: NASCET CRITERIA. The degree of stenosis in the cervical segment of the internal carotid artery is based on NASCET criteria. Normal is no stenosis. Mild is less than 50% stenosis. Moderate is 50-69% stenosis. Severe is 70% to 99% stenosis. Total occlusion is no detectable patent lumen.
[2024-04-18] MEDS: iohexol 350 mg/mL 500 mL Btl (per mL) IV (13:50)
== END 2024-04-18 12:40 | disposition home or self-care (01) ==
LOC: RAD 12:40
PROVIDERS: PCP Family Medicine; Visit Provider Family Medicine
DX: I65.22 Occlusion and stenosis of left carotid artery (principal); I65.01 Occlusion and stenosis of right vertebral artery
CPT/HCPCS: 70496; 70498

== ENCOUNTER → 2024-07-04 07:09 | Outpatient (BNVA) | payer OTHER, SELFPAY | PROVIDERS: PCP Family Medicine; Visit Provider Podiatrist Foot & Ankle Surgery | DX: L60.3 Nail dystrophy (principal); G62.9 Polyneuropathy, unspecified; E11.42 Type 2 diabetes mellitus with diabetic polyneuropathy | CPT/HCPCS: 11721; 99203 ==

== ENCOUNTER → 2024-09-07 06:47 | Outpatient (BNVA) | payer OTHER, SELFPAY | PROVIDERS: PCP Family Medicine; Visit Provider Podiatrist Foot & Ankle Surgery | DX: E11.42 Type 2 diabetes mellitus with diabetic polyneuropathy (principal); L60.3 Nail dystrophy; L85.1 Acquired keratosis [keratoderma] palmaris et plantaris; G62.9 Polyneuropathy, unspecified | CPT/HCPCS: 11055; 11721 ==

== ENCOUNTER → 2024-11-09 06:42 | Outpatient (BNVA) | payer OTHER, SELFPAY | PROVIDERS: PCP Family Medicine; Visit Provider Podiatrist Foot & Ankle Surgery | DX: E11.42 Type 2 diabetes mellitus with diabetic polyneuropathy (principal); L60.3 Nail dystrophy; G62.9 Polyneuropathy, unspecified | CPT/HCPCS: 11721 ==

== ENCOUNTER → 2025-01-11 06:50 | Outpatient (BNVA) | payer OTHER, SELFPAY | PROVIDERS: PCP Family Medicine; Visit Provider Podiatrist Foot & Ankle Surgery | DX: E11.42 Type 2 diabetes mellitus with diabetic polyneuropathy (principal); L60.3 Nail dystrophy; L84 Corns and callosities; G62.9 Polyneuropathy, unspecified | CPT/HCPCS: 11056; 11721 ==

== ENCOUNTER → 2025-03-15 06:48 | Outpatient (BNVA) | payer OTHER, SELFPAY | PROVIDERS: PCP Family Medicine; Visit Provider Podiatrist Foot & Ankle Surgery | DX: E11.42 Type 2 diabetes mellitus with diabetic polyneuropathy (principal); L60.3 Nail dystrophy; G62.9 Polyneuropathy, unspecified | CPT/HCPCS: 11055; 11721 ==

== ENCOUNTER → 2025-05-24 06:54 | Outpatient (BNVA) | payer OTHER, SELFPAY | PROVIDERS: PCP Family Medicine; Visit Provider Podiatrist Foot & Ankle Surgery | DX: E11.8 Type 2 diabetes mellitus with unspecified complications (principal); L60.3 Nail dystrophy; G62.9 Polyneuropathy, unspecified; E11.42 Type 2 diabetes mellitus with diabetic polyneuropathy | CPT/HCPCS: 11721 ==